=== PATIENT | male | born 1960 | race African-American/Black ===

== ENCOUNTER 2023-08-05 12:33 | Inpatient (IN) | payer OTHER ==
[2023-08-05 13:51] VITALS: BMI 44.8
[2023-08-05] MEDS ORDERED: BENZONATATE 200 MG CAPSULE PO PRN (15:58)
[2023-08-05] MEDS ORDERED: POLYETHYLENE GLYCOL (HEALTHYLAX) 3350 17 GM PACKET PO PRN (15:58)
[2023-08-05] MEDS ORDERED: IBUPROFEN 600 MG TABLET (FP) PO PRN (15:58)
[2023-08-05] MEDS ORDERED: BENZOCAINE/MENTHOL (CHLORASEPTIC ) LOZENGE MM PRN (15:58)
[2023-08-05] MEDS ORDERED: MAG HYDROX/AL HYDROX/SIMETH 30 ML UNIT-DOSE CUP PO PRN (15:58)
[2023-08-05] MEDS ORDERED: IBUPROFEN 400 MG TABLET (FP) PO PRN (15:58)
[2023-08-05] MEDS ORDERED: NALOXONE HCL 0.4 MG/ML VIAL IM PRN (15:58)
[2023-08-05] MEDS ORDERED: DICYCLOMINE HCL 10 MG CAPSULE PO PRN (15:58)
[2023-08-05] MEDS ORDERED: MAGNESIUM HYDROX 2400MG/30ML ORAL SUSPENSION 30 ML CUP PO PRN (15:58)
[2023-08-05] MEDS ORDERED: NALOXONE HCL (KLOXXADO) 8 MG SPRAY NS PRN (15:58)
[2023-08-05] MEDS ORDERED: LOPERAMIDE HCL 2 MG CAPSULE PO PRN (15:58)
[2023-08-05] MEDS ORDERED: ACETAMINOPHEN 325 MG TABLET (FP) PO PRN (15:58)
[2023-08-05] MEDS ORDERED: guaiFENesin 600 MG TABLET.ER (FP) PO PRN (15:58)
[2023-08-05] MEDS ORDERED: hydrOXYzine PAMOATE 25 MG CAPSULE (FP) PO PRN (15:58)
[2023-08-05] MEDS ORDERED: ONDANSETRON *ODT* 4 MG TABLET SL PRN (15:58)
[2023-08-05] MEDS ORDERED: methaDONE HCL 10 MG TABLET (FOR DETOX USE ONLY) PO ONE (15:58)
[2023-08-05] MEDS ORDERED: BISMUTH SUBSALICYLATE 524 MG/30 ML PO PRN (15:58)
[2023-08-05] MEDS: cloNIDine HCL 0.1 MG TABLET PO PRN (17:48)
[2023-08-05] MEDS: methaDONE HCL 10 MG TABLET (FOR DETOX USE ONLY) PO ONE (17:55)
[2023-08-05] MEDS: PRENATAL VITAMINS W/ FOLIC ACID TABLET (FP) PO SCH (18:00)
[2023-08-05] MEDS: SUVOREXANT 5 MG TABLET PO PRN (22:18)
[2023-08-05] MEDS: metoPROLOL SUCCINATE 25 MG TAB.SR.24H (FP) PO SCH (22:19)
[2023-08-05] MEDS: THIAMINE HCL 100 MG TABLET (FP) PO SCH (22:19)
[2023-08-05] MEDS: MELATONIN 5 MG TABLETS PO SCH (22:47)
[2023-08-06] MEDS ORDERED: PATIENT'S OWN MEDICATION (NON-FORMULARY) (Hydrochlorothiazide [Hydrochlorothiazide] 12.5 M PO SCH (10:00)
[2023-08-06] MEDS: ASPIRIN 81 MG CHEWABLE TABLETS PO SCH (10:32)
[2023-08-06] MEDS: HYDROCHLOROTHIAZIDE 12.5 MG CAPSULE (FP) PO SCH (10:32)
[2023-08-06] MEDS: amLODIPine BESYLATE 10 MG TABLET (FP) PO ONE (20:23)
[2023-08-06] MEDS: METHOCARBAMOL 500 MG TABLET PO PRN (22:30)
[2023-08-07 09:21] VITALS: BP 172/101; PULSE 55; RESP 16; TEMP 97.7
[2023-08-07] MEDS: methaDONE HCL 10 MG TABLET (FOR DETOX USE ONLY) PO ONE (10:43)
[2023-08-07 15:29] LABS: POTASSIUM 4.1 mmol/L (3.5-5.1)
[2023-08-07 15:40] LABS: CALCIUM 9.8 mg/dL (8.5-10.1)
[2023-08-07 15:41] LABS: ALBUMIN 4.1 g/dl (3.4-5.0); BLOOD UREA NITROGEN 10.5 mg/dL (7-18)
[2023-08-07 15:45] LABS: BILIRUBIN,TOTAL 0.5 mg/dL (0.2-1); TOT PROT 8.3 g/dl (6.4-8.2)
[2023-08-07 15:46] LABS: HEMATOCRIT 44.7 % (35.4-49); HEMOGLOBIN 14.1 GM/dL (11.7-16.9); MCH 26.7 pg (25.7-33.7); MCHC 31.4 g/dl (32.0-35.9); MEAN CELL VOLUME 84.8 fl (80-96); MEAN PLT VOLUME 9.7 fl (7.5-11.1); PLATELET COUNT 164 10^3/uL (134-434); RBC 5.27 M/mm3 (4.00-5.60); RDW 15.9 % (11.9-15.9); WHITE BLOOD COUNT 6.2 K/mm3 (4.0-10.0)
[2023-08-09] MEDS ORDERED: methaDONE HCL 10 MG TABLET (FOR DETOX USE ONLY) PO ONE (10:00)
== END 2023-08-07 12:54 | disposition left against medical advice (07) | DRG 894 ==
LOC: YASAS 12:33 → Y6N 16:53
PROVIDERS: ADMIT Allergy & Immunology; ATTEND Surgery
PROC: HZ2ZZZZ Detoxification Services for Substance Abuse Treatment (ICD-10-PCS; principal; 2023-08-05)
DX: F11.23 Opioid dependence with withdrawal (principal); F14.20 Cocaine dependence, uncomplicated; F12.20 Cannabis dependence, uncomplicated; I25.10 Atherosclerotic heart disease of native coronary artery without angina pectoris; I10 Essential (primary) hypertension; Z95.5 Presence of coronary angioplasty implant and graft; Z28.310 Unvaccinated for COVID-19; Z28.9 Immunization not carried out for unspecified reason
CPT/HCPCS: 36415; 80053; 80305; 80307; 85027; 86593; 86780

== ENCOUNTER 2023-08-19 20:06 | Inpatient (IN) | payer OTHER ==
[2023-08-19 20:49] VITALS: BMI 23.1
[2023-08-19] MEDS ORDERED: ONDANSETRON *ODT* 4 MG TABLET SL PRN (21:30)
[2023-08-19] MEDS ORDERED: guaiFENesin 600 MG TABLET.ER (FP) PO PRN (21:30)
[2023-08-19] MEDS ORDERED: ACETAMINOPHEN 325 MG TABLET (FP) PO PRN (21:30)
[2023-08-19] MEDS ORDERED: BISMUTH SUBSALICYLATE 524 MG/30 ML PO PRN (21:30)
[2023-08-19] MEDS ORDERED: DICYCLOMINE HCL 10 MG CAPSULE PO PRN (21:30)
[2023-08-19] MEDS ORDERED: NALOXONE HCL (KLOXXADO) 8 MG SPRAY NS PRN (21:30)
[2023-08-19] MEDS ORDERED: IBUPROFEN 600 MG TABLET (FP) PO PRN (21:30)
[2023-08-19] MEDS ORDERED: NALOXONE HCL 0.4 MG/ML VIAL IM PRN (21:30)
[2023-08-19] MEDS ORDERED: POLYETHYLENE GLYCOL (HEALTHYLAX) 3350 17 GM PACKET PO PRN (21:30)
[2023-08-19] MEDS ORDERED: LOPERAMIDE HCL 2 MG CAPSULE PO PRN (21:30)
[2023-08-19] MEDS ORDERED: IBUPROFEN 400 MG TABLET (FP) PO PRN (21:30)
[2023-08-19] MEDS ORDERED: MAG HYDROX/AL HYDROX/SIMETH 30 ML UNIT-DOSE CUP PO PRN (21:30)
[2023-08-19] MEDS ORDERED: BENZONATATE 200 MG CAPSULE PO PRN (21:30)
[2023-08-19] MEDS ORDERED: BENZOCAINE/MENTHOL (CHLORASEPTIC ) LOZENGE MM PRN (21:30)
[2023-08-19] MEDS ORDERED: MAGNESIUM HYDROX 2400MG/30ML ORAL SUSPENSION 30 ML CUP PO PRN (21:30)
[2023-08-19] MEDS: MELATONIN 5 MG TABLETS PO SCH (23:05)
[2023-08-19] MEDS: THIAMINE 100 MG TABLET PO SCH (23:06)
[2023-08-19] MEDS: metoPROLOL SUCCINATE 25 MG TAB.SR.24H (FP) PO SCH (23:53)
[2023-08-20] MEDS: HYDROCHLOROTHIAZIDE 12.5 MG CAPSULE (FP) PO SCH (09:12)
[2023-08-20] MEDS: ASPIRIN 81 MG CHEWABLE TABLETS PO SCH (09:12)
[2023-08-20] MEDS: methaDONE HCL 10 MG TABLET (FOR DETOX USE ONLY) PO ONE (09:12)
[2023-08-20] MEDS: cloNIDine HCL 0.1 MG TABLET PO PRN (09:12)
[2023-08-20] MEDS: PRENATAL VITAMINS W/ FOLIC ACID TABLET (FP) PO SCH (09:12)
[2023-08-20] MEDS: SUVOREXANT 10 MG TABLET PO PRN (22:28)
[2023-08-22] MEDS: methaDONE HCL 10 MG TABLET (FOR DETOX USE ONLY) PO ONE (09:48)
[2023-08-22] MEDS: hydrOXYzine PAMOATE 25 MG CAPSULE (FP) PO PRN (22:00)
[2023-08-23] MEDS: cloNIDine HCL 0.1 MG TABLET PO ONE (22:22)
[2023-08-24] MEDS: methaDONE HCL 10 MG TABLET (FOR DETOX USE ONLY) PO ONE (09:04)
[2023-08-24 20:53] VITALS: PULSE 56
[2023-08-25 06:23] VITALS: BP 139/78; RESP 17; TEMP 97.7
== END 2023-08-25 08:38 | disposition home or self-care (01) | DRG 897 ==
LOC: YASAS 20:06 → Y6N 22:02
PROVIDERS: ADMIT Allergy & Immunology; ATTEND Surgery
PROC: HZ2ZZZZ Detoxification Services for Substance Abuse Treatment (ICD-10-PCS; principal; 2023-08-19)
DX: F11.23 Opioid dependence with withdrawal (principal); F14.20 Cocaine dependence, uncomplicated; F19.282 Other psychoactive substance dependence with psychoactive substance-induced sleep disorder; Z59.00 Homelessness unspecified; F12.20 Cannabis dependence, uncomplicated; I25.10 Atherosclerotic heart disease of native coronary artery without angina pectoris; I10 Essential (primary) hypertension; I25.2 Old myocardial infarction; Z95.5 Presence of coronary angioplasty implant and graft; Z87.891 Personal history of nicotine dependence; Z28.310 Unvaccinated for COVID-19; Z28.9 Immunization not carried out for unspecified reason; Z56.0 Unemployment, unspecified
CPT/HCPCS: 71046-TC-FY; 93005; 93010

== ENCOUNTER 2023-10-07 23:29 | Inpatient (IN) | payer OTHER ==
[2023-10-08 00:20] VITALS: BMI 21.6
[2023-10-08] MEDS ORDERED: LOPERAMIDE HCL 2 MG CAPSULE PO PRN (03:38)
[2023-10-08] MEDS ORDERED: MAG HYDROX/AL HYDROX/SIMETH 30 ML UNIT-DOSE CUP PO PRN (03:38)
[2023-10-08] MEDS ORDERED: POLYETHYLENE GLYCOL (HEALTHYLAX) 3350 17 GM PACKET PO PRN (03:38)
[2023-10-08] MEDS ORDERED: MAGNESIUM HYDROX 2400MG/30ML ORAL SUSPENSION 30 ML CUP PO PRN (03:38)
[2023-10-08] MEDS ORDERED: NALOXONE HCL 0.4 MG/ML VIAL IM PRN (03:38)
[2023-10-08] MEDS ORDERED: BENZONATATE 200 MG CAPSULE PO PRN (03:38)
[2023-10-08] MEDS ORDERED: guaiFENesin 600 MG TABLET.ER (FP) PO PRN (03:38)
[2023-10-08] MEDS ORDERED: DICYCLOMINE HCL 10 MG CAPSULE PO PRN (03:38)
[2023-10-08] MEDS ORDERED: ACETAMINOPHEN 325 MG TABLET (FP) PO PRN (03:38)
[2023-10-08] MEDS ORDERED: BENZOCAINE/MENTHOL (CHLORASEPTIC ) LOZENGE MM PRN (03:38)
[2023-10-08] MEDS ORDERED: NALOXONE (NARCAN) HCL 4 MG/0.1 ML SPRAY NS PRN (03:38)
[2023-10-08] MEDS ORDERED: BISMUTH SUBSALICYLATE 524 MG/30 ML PO PRN (03:38)
[2023-10-08] MEDS ORDERED: IBUPROFEN 600 MG TABLET (FP) PO PRN (03:38)
[2023-10-08] MEDS ORDERED: ONDANSETRON *ODT* 4 MG TABLET SL PRN (03:38)
[2023-10-08] MEDS ORDERED: IBUPROFEN 400 MG TABLET (FP) PO PRN (03:38)
[2023-10-08] MEDS: cloNIDine HCL 0.1 MG TABLET PO ONE ×2 (04:36→17:39)
[2023-10-08] MEDS: PRENATAL VITAMINS W/ FOLIC ACID TABLET (FP) PO SCH (09:48)
[2023-10-08] MEDS: metoPROLOL SUCCINATE 25 MG TAB.SR.24H (FP) PO SCH (09:48)
[2023-10-08] MEDS: ASPIRIN 81 MG CHEWABLE TABLETS PO SCH (09:48)
[2023-10-08] MEDS: amLODIPine BESYLATE 10 MG TABLET (FP) PO ONE (13:57)
[2023-10-08] MEDS: METHOCARBAMOL 500 MG TABLET PO PRN (17:39)
[2023-10-08] MEDS: LISINOPRIL 5 MG TABLET PO ONE (19:41)
[2023-10-08] MEDS: MELATONIN 5 MG TABLETS PO SCH (22:58)
[2023-10-08] MEDS: THIAMINE 100 MG TABLET PO SCH (22:58)
[2023-10-09] MEDS: hydrOXYzine PAMOATE 25 MG CAPSULE (FP) PO PRN (07:50)
[2023-10-09] MEDS: LISINOPRIL 10 MG TABLET PO ONE (08:37)
[2023-10-09 09:14] VITALS: BP 192/101; PULSE 56; RESP 16; TEMP 97.6
== END 2023-10-09 08:47 | disposition home or self-care (01) | DRG 897 ==
LOC: YASAS 23:29 → Y3N 10-08 03:46
PROVIDERS: ADMIT Allergy & Immunology; ATTEND Surgery
PROC: HZ2ZZZZ Detoxification Services for Substance Abuse Treatment (ICD-10-PCS; principal; 2023-10-08)
DX: F11.20 Opioid dependence, uncomplicated (principal); F14.20 Cocaine dependence, uncomplicated; Z59.00 Homelessness unspecified; F12.20 Cannabis dependence, uncomplicated; I25.10 Atherosclerotic heart disease of native coronary artery without angina pectoris; I10 Essential (primary) hypertension; Z95.5 Presence of coronary angioplasty implant and graft; Z87.891 Personal history of nicotine dependence
CPT/HCPCS: 36415; 80305; 80307; 93005; 93010

== ENCOUNTER 2023-10-19 23:59 | Inpatient (IN) | payer OTHER ==
[2023-10-20 00:28] VITALS: BMI 20.9
[2023-10-20] MEDS ORDERED: ACETAMINOPHEN 325 MG TABLET (FP) PO PRN (00:37)
[2023-10-20] MEDS ORDERED: DICYCLOMINE HCL 10 MG CAPSULE PO PRN (00:37)
[2023-10-20] MEDS ORDERED: LOPERAMIDE HCL 2 MG CAPSULE PO PRN (00:37)
[2023-10-20] MEDS ORDERED: MAGNESIUM HYDROX 2400MG/30ML ORAL SUSPENSION 30 ML CUP PO PRN (00:37)
[2023-10-20] MEDS ORDERED: BISMUTH SUBSALICYLATE 524 MG/30 ML PO PRN (00:37)
[2023-10-20] MEDS ORDERED: NALOXONE HCL 0.4 MG/ML VIAL IM PRN (00:37)
[2023-10-20] MEDS ORDERED: ONDANSETRON *ODT* 4 MG TABLET SL PRN (00:37)
[2023-10-20] MEDS ORDERED: IBUPROFEN 600 MG TABLET (FP) PO PRN (00:37)
[2023-10-20] MEDS ORDERED: guaiFENesin 600 MG TABLET.ER (FP) PO PRN (00:37)
[2023-10-20] MEDS ORDERED: hydrOXYzine PAMOATE 25 MG CAPSULE (FP) PO PRN (00:37)
[2023-10-20] MEDS ORDERED: NALOXONE (NARCAN) HCL 4 MG/0.1 ML SPRAY NS PRN (00:37)
[2023-10-20] MEDS ORDERED: BENZONATATE 200 MG CAPSULE PO PRN (00:37)
[2023-10-20] MEDS ORDERED: BENZOCAINE/MENTHOL (CHLORASEPTIC ) LOZENGE MM PRN (00:37)
[2023-10-20] MEDS ORDERED: POLYETHYLENE GLYCOL (HEALTHYLAX) 3350 17 GM PACKET PO PRN (00:37)
[2023-10-20] MEDS ORDERED: IBUPROFEN 400 MG TABLET (FP) PO PRN (00:37)
[2023-10-20] MEDS: amLODIPine BESYLATE 10 MG TABLET (FP) PO ONE (03:47)
[2023-10-20] MEDS: methaDONE HCL 10 MG TABLET (FOR DETOX USE ONLY) PO ONE (09:17)
[2023-10-20] MEDS: PRENATAL VITAMINS W/ FOLIC ACID TABLET (FP) PO SCH (09:17)
[2023-10-20] MEDS: ASPIRIN 81 MG CHEWABLE TABLETS PO SCH (09:17)
[2023-10-20] MEDS ORDERED: metoPROLOL SUCCINATE 25 MG TAB.SR.24H (FP) PO SCH (10:00)
[2023-10-20] MEDS: METOPROLOL TARTRATE 25 MG TABLET (FP) PO SCH (14:35)
[2023-10-20] MEDS: cloNIDine HCL 0.1 MG TABLET PO PRN (16:42)
[2023-10-20] MEDS: LOSARTAN POTASSIUM 25 MG TABLET PO ONE (18:46)
[2023-10-20] MEDS: THIAMINE 100 MG TABLET PO SCH (21:34)
[2023-10-20] MEDS: MELATONIN 5 MG TABLETS PO SCH (21:34)
[2023-10-21] MEDS: amLODIPine BESYLATE 10 MG TABLET (FP) PO SCH (15:33)
[2023-10-21] MEDS: LOSARTAN POTASSIUM 50 MG TABLET PO SCH (16:30)
[2023-10-21] MEDS ORDERED: cloNIDine HCL 0.1 MG TABLET PO PRN (19:17)
[2023-10-21] MEDS: MAG HYDROX/AL HYDROX/SIMETH 30 ML UNIT-DOSE CUP PO PRN (21:56)
[2023-10-22 09:14] VITALS: BP 163/93; PULSE 63; RESP 16; TEMP 97.5
[2023-10-22] MEDS: methaDONE HCL 10 MG TABLET (FOR DETOX USE ONLY) PO ONE (09:21)
[2023-10-24] MEDS ORDERED: methaDONE HCL 10 MG TABLET (FOR DETOX USE ONLY) PO ONE (10:00)
== END 2023-10-22 09:21 | disposition left against medical advice (07) | DRG 894 ==
LOC: YASAS 23:59 → Y3N 10-20 01:28
PROVIDERS: ADMIT Allergy & Immunology; ATTEND Surgery
PROC: HZ2ZZZZ Detoxification Services for Substance Abuse Treatment (ICD-10-PCS; principal; 2023-10-20)
DX: F11.23 Opioid dependence with withdrawal (principal); F14.20 Cocaine dependence, uncomplicated; F19.282 Other psychoactive substance dependence with psychoactive substance-induced sleep disorder; Z59.00 Homelessness unspecified; F12.20 Cannabis dependence, uncomplicated; I25.10 Atherosclerotic heart disease of native coronary artery without angina pectoris; I10 Essential (primary) hypertension; I25.2 Old myocardial infarction; Z95.5 Presence of coronary angioplasty implant and graft; Z87.891 Personal history of nicotine dependence; Z56.0 Unemployment, unspecified
CPT/HCPCS: 80305

== ENCOUNTER 2025-02-16 02:07 | Inpatient (IN) | payer OTHER ==
[2025-02-16 02:11] VITALS: BMI 24.9
[2025-02-16] MEDS ORDERED: IBUPROFEN 600 MG TABLET (FP) PO PRN (02:30)
[2025-02-16] MEDS ORDERED: IBUPROFEN 400 MG TABLET (FP) PO PRN (02:30)
[2025-02-16] MEDS ORDERED: MAGNESIUM HYDROX 2400MG/30ML ORAL SUSPENSION 30 ML CUP PO PRN (02:30)
[2025-02-16] MEDS ORDERED: POLYETHYLENE GLYCOL (HEALTHYLAX) 3350 17 GM PACKET PO PRN (02:30)
[2025-02-16] MEDS ORDERED: hydrOXYzine PAMOATE 25 MG CAPSULE (FP) PO PRN (02:30)
[2025-02-16] MEDS ORDERED: guaiFENesin 600 MG TABLET.ER (FP) PO PRN (02:30)
[2025-02-16] MEDS ORDERED: BENZONATATE 200 MG CAPSULE PO PRN (02:30)
[2025-02-16] MEDS ORDERED: ACETAMINOPHEN 325 MG TABLET (FP) PO PRN (02:30)
[2025-02-16] MEDS ORDERED: NALOXONE (NARCAN) HCL 4 MG/0.1 ML SPRAY NS PRN (02:30)
[2025-02-16] MEDS ORDERED: MAG HYDROX/AL HYDROX/SIMETH 30 ML UNIT-DOSE CUP PO PRN (02:30)
[2025-02-16] MEDS ORDERED: LOPERAMIDE HCL 2 MG CAPSULE PO PRN (02:30)
[2025-02-16] MEDS ORDERED: BENZOCAINE/MENTHOL (CHLORASEPTIC ) LOZENGE MM PRN (02:30)
[2025-02-16] MEDS ORDERED: BACITRACIN 0.9 GM PACKET ONE (03:00)
[2025-02-16] MEDS: BACITRACIN ZINC 15 GM TUBE TOPICAL OINTMENT TP SCH (10:19)
[2025-02-16] MEDS: PRENATAL VITAMINS W/ FOLIC ACID TABLET (FP) PO SCH (10:19)
[2025-02-16] MEDS: ASPIRIN 81 MG CHEWABLE TABLETS PO SCH (10:20)
[2025-02-16] MEDS ORDERED: TUBERCULIN PPD 5 TU/0.1ML VIAL ID ONE (10:51)
[2025-02-16] MEDS: TUBERCULIN PPD 5 TU/0.1ML SYRINGE (IN PATIENT USE ONLY) ID ONE (10:59)
[2025-02-16 12:02] LABS: MCHC 32.1 g/dl (32.3-36.5); MEAN CELL VOLUME 85.2 fl (79.0-92.2); MEAN PLT VOLUME 11.5 fl (9.4-12.4); RDW 16.4 % (12.2-16.4)
[2025-02-16 12:14] LABS: GLUCOSE,RANDOM 102 mg/dL (74-106); TOT PROT 6.5 g/dl (6.4-8.2)
[2025-02-16 12:15] LABS: CO2 25 mmol/L (21-32)
[2025-02-16 12:16] LABS: ALK PHOS 86 U/L (40-150)
[2025-02-16 12:19] LABS: SGOT/AST 62 U/L (5-34); SGPT/ALT 82 U/L (0-55)
[2025-02-16 12:20] LABS: CREATININE 1.00 mg/dL (0.55-1.3)
[2025-02-16 12:43] LABS: HCV DIAGNOSTIC IN-HOUSE W/RFLX NON-REACTIVE (NONREACTIVE)
[2025-02-16] MEDS: BACITRACIN 0.9 GM PACKET TP SCH (12:56)
[2025-02-16 13:25] LABS: SYPHILIS W/ RPR CONF REACTIVE (NONREACTIVE)
[2025-02-16 16:12] LABS: RPR REFLEX REACTIVE 1:4 (NONREACTIVE)
[2025-02-16 17:14] LABS: URINE APPEARANCE CLOUDY; URINE BILIRUBIN NEGATIVE (NEGATIVE); URINE COLOR YELLOW; URINE GLUCOSE (UA) NEGATIVE (NEGATIVE); URINE KETONE NEGATIVE (NEGATIVE); URINE LEUK ESTERASE 1+ (NEGATIVE); URINE NITRITE NEGATIVE (NEGATIVE); URINE PROTEIN 1+ (NEGATIVE); URINE UROBILINOGEN 0.2 mg/dL (0.2-1.0)
[2025-02-16] MEDS: THIAMINE 100 MG TABLET PO SCH (21:34)
[2025-02-16] MEDS: SUVOREXANT 10 MG TABLET PO PRN (21:35)
[2025-02-16] MEDS ORDERED: MELATONIN 5 MG TABLETS PO SCH (22:00)
[2025-02-17 06:48] VITALS: BP 135/87; PULSE 65; RESP 20; TEMP 98.1
== END 2025-02-17 11:28 | disposition left against medical advice (07) | DRG 894 ==
LOC: YASAS 02:07 → Y3E 03:16
PROVIDERS: ADMIT Allergy & Immunology; ATTEND Allergy & Immunology
PROC: HZ42ZZZ Group Counseling for Substance Abuse Treatment, Cognitive-Behavioral (ICD-10-PCS; principal; 2025-02-16)
DX: F14.20 Cocaine dependence, uncomplicated (principal); F19.282 Other psychoactive substance dependence with psychoactive substance-induced sleep disorder; Z59.01 Sheltered homelessness; F12.20 Cannabis dependence, uncomplicated; G47.00 Insomnia, unspecified; I25.10 Atherosclerotic heart disease of native coronary artery without angina pectoris; I10 Essential (primary) hypertension; Z95.5 Presence of coronary angioplasty implant and graft; Z87.891 Personal history of nicotine dependence
CPT/HCPCS: 36415; 80053; 80307; 81003; 85027; 86593; 86780; 86803; 93005; 93010